=== PATIENT | female | born 1995 | race African-American/Black ===

== ENCOUNTER 2017-02-04 18:56 | Emergency (ER) | payer MEDICAID, OTHER ==
[~2017-02-04] VITALS: Ht 157.5 cm; Wt 93.0 kg
[~2017-02-04 18:56] MED LIST: UNK ANTIBIOTIC
[2017-02-04 20:42] VITALS: BP 130/89
== END 2017-02-04 22:57 | disposition home or self-care (01) ==
LOC: ER 18:56
DX: L98.9 Disorder of the skin and subcutaneous tissue, unspecified (principal); Z98.890 Other specified postprocedural states
CPT/HCPCS: 99283

== ENCOUNTER 2018-01-28 10:52 | Emergency (ER) | payer OTHER ==
[~2018-01-28] VITALS: Ht 157.5 cm; Wt 110.0 kg
[2018-01-28 13:09] LABS: BASOPHILS % 0.7 % (0.0-2.0); EOSINOPHILS % 1.9 % (0.0-5.0); HEMATOCRIT. 39.2 % (36.0-48.0); HEMOGLOBIN. 13.3 g/dL (12.0-16.0); LYMPHOCYTES % 24.4 % (20.0-50.0); MEAN CORPUSCULAR HEMOGLOBIN 27.5 pg (28.0-32.0); MEAN CORPUSCULAR VOLUME 81.1 fL (81.0-99.0); MEAN PLATELET VOLUME 8.1 fl (7.4-10.4); PLATELET 260 x1000/uL (130-400); RED BLOOD CELL COUNT 4.84 mill/uL (4.2-5.4); RED CELL DISTRIBUTION WIDTH 13.2 % (11.6-14.6)
[2018-01-28 13:16] LABS: CHLORIDE 108 mEq/L (98-107)
[2018-01-28 13:17] LABS: INR 1.1; PROTHROMBIN TIME 10.9 sec (9.4-11.6)
[2018-01-28 13:44] LABS: HCG SCREEN NEGATIVE
[2018-01-28] MEDS ORDERED: PROCHLORPERAZINE 10MG/2ML VIAL IV ONE (15:30)
[2018-01-28] MEDS ORDERED: SODIUM CHLORIDE 0.9% 1,000 ML IV ONE (15:30)
[2018-01-28] MEDS ORDERED: KETOROLAC 15MG/ML VIAL IV ONE (15:30)
[2018-01-28 17:36] VITALS: BP 121/63
== END 2018-01-28 17:53 | disposition home or self-care (01) ==
LOC: ER 11:15
DX: R55 Syncope and collapse (principal); R51 Headache; R42 Dizziness and giddiness; H53.8 Other visual disturbances; Z98.890 Other specified postprocedural states
CPT/HCPCS: 36415; 71045; 80048; 83735; 84703; 85025; 85610; 93005; 96361; 96374; 96375; 99285; J0780; J1885; J7030; Z7610

== ENCOUNTER 2019-06-11 13:27 | Emergency (ER) | payer OTHER ==
[~2019-06-11] VITALS: Ht 157.5 cm; Wt 115.0 kg
[2019-06-11] MEDS ORDERED: ONDANSETRON HCL 4MG/2ML INJ IV ONE (15:15)
[2019-06-11] MEDS ORDERED: SODIUM CHLORIDE 0.9% 1,000 ML IV ONE (15:15)
[2019-06-11 15:53] LABS: BASOPHILS % 0.5 % (0.0-2.0); EOSINOPHILS % 0.8 % (0.0-5.0); HEMATOCRIT. 38.3 % (36.0-48.0); HEMOGLOBIN. 12.6 g/dL (12.0-16.0); LYMPHOCYTES % 26.7 % (20.0-50.0); MEAN CORPUSCULAR HEMOGLOBIN 25.6 pg (28.0-32.0); MEAN CORPUSCULAR VOLUME 77.7 fL (81.0-99.0); MONOCYTES % 6.4 % (2.0-8.0); NEUTROPHILS % 65.6 % (40.0-76.0); PLATELET 261 x1000/uL (130-400); RED BLOOD CELL COUNT 4.92 mill/uL (4.2-5.4); RED CELL DISTRIBUTION WIDTH 14.8 % (11.6-14.6)
[2019-06-11 15:55] LABS: CLARITY URINE CLOUDY (CLEAR); COLOR URINE YELLOW (YELLOW); KETONES URINE NEGATIVE (NEGATIVE); LEUKOCYTE ESTERASE URINE 2+ (NEGATIVE); NITRITE URINE NEGATIVE (NEGATIVE); OCCULT BLOOD URINE NEGATIVE (NEGATIVE); PH URINE 5.5 (4.5-8.0); PROTEIN URINE NEGATIVE (NEGATIVE); SPECIFIC GRAVITY URINE 1.029 (1.005-1.030); UROBILINOGEN URINE 0.2 E.U./dL (0.2-1.0)
[2019-06-11 15:57] LABS: CHLORIDE 106 mEq/L (98-107)
[2019-06-11 16:21] LABS: B-HCG QUANTITATIVE 19100 mIU/mL (<3)
[2019-06-11] MEDS ORDERED: CEFTRIAXONE 1 G PREMIX 50 ML IV ONE (17:00)
[2019-06-11 17:35] VITALS: BP 125/85
== END 2019-06-11 17:56 | disposition home or self-care (01) ==
LOC: ER 13:35
DX: O26.891 Other specified pregnancy related conditions, first trimester (principal); O21.0 Mild hyperemesis gravidarum; O23.11 Infections of bladder in pregnancy, first trimester; O99.331 Smoking (tobacco) complicating pregnancy, first trimester; D64.9 Anemia, unspecified; Z3A.01 Less than 8 weeks gestation of pregnancy
CPT/HCPCS: 36415; 76801; 76817; 80053; 81003; 81025; 84702; 85025; 87086; 96361; 96374; 96375; 99284; J0696; J2405; J7030; Z7610

== ENCOUNTER 2019-10-06 09:29 | Observation (INO) | payer OTHER ==
[~2019-10-06] VITALS: Ht 154.9 cm; Wt 117.9 kg
[2019-10-06] MEDS ORDERED: ACETAMINOPHEN 500MG TABLET PO NR (10:12)
== END 2019-10-06 10:40 | disposition home or self-care (01) ==
LOC: 8 EST LDRP 09:29
PROVIDERS: ADMIT Obstetrics & Gynecology; ATTEND Obstetrics & Gynecology
DX: O9A.212 Injury, poisoning and certain other consequences of external causes complicating pregnancy, second trimester (principal); O26.893 Other specified pregnancy related conditions, third trimester; R10.30 Lower abdominal pain, unspecified; Z3A.22 22 weeks gestation of pregnancy
CPT/HCPCS: 99281; G0378

== ENCOUNTER 2019-10-17 09:59 | Observation (INO) | payer OTHER ==
[~2019-10-17] VITALS: Ht 157.5 cm; Wt 84.8 kg
[2019-10-17] MEDS ORDERED: PREN-134 PO (10:52)
== END 2019-10-17 13:00 | disposition home or self-care (01) ==
LOC: 8 EST LDRP 09:59
PROVIDERS: ADMIT Specialist; ATTEND Specialist
DX: O9A.212 Injury, poisoning and certain other consequences of external causes complicating pregnancy, second trimester (principal); O36.8120 Decreased fetal movements, second trimester, not applicable or unspecified; Z3A.24 24 weeks gestation of pregnancy; W19.XXXA Unspecified fall, initial encounter; Y93.9 Activity, unspecified; Y92.9 Unspecified place or not applicable; Y99.9 Unspecified external cause status
CPT/HCPCS: 76805; 76815; 99281; G0378

== ENCOUNTER 2019-12-07 21:16 | Observation (INO) | payer OTHER ==
[~2019-12-07] VITALS: Ht 157.5 cm; Wt 91.2 kg
[~2019-12-07 21:16] MED LIST changes: +PREN-134 PO; -UNK ANTIBIOTIC
[2019-12-07] MEDS: SODIUM CHLORIDE 0.9% 1,000 ML IV SCH ×2 (22:30→23:45)
[2019-12-07] MEDS ORDERED: ACETAMINOPHEN 500MG TABLET PO NR (23:32)
[2019-12-08] MEDS: SODIUM CHLORIDE 0.9% 1,000 ML IV SCH (00:04)
== END 2019-12-08 02:00 | disposition home or self-care (01) ==
LOC: ER 22:08 → L&D 22:09 → 8 EST LDRP 23:51
PROVIDERS: ADMIT Obstetrics & Gynecology; ATTEND Obstetrics & Gynecology
DX: O9A.213 Injury, poisoning and certain other consequences of external causes complicating pregnancy, third trimester (principal); O26.893 Other specified pregnancy related conditions, third trimester; R10.30 Lower abdominal pain, unspecified; Z3A.31 31 weeks gestation of pregnancy; V43.62XA Car passenger injured in collision with other type car in traffic accident, initial encounter; Y93.89 Activity, other specified; Y92.89 Other specified places as the place of occurrence of the external cause; Y99.8 Other external cause status
CPT/HCPCS: 76805; 76818; 99281; G0378; 96360; 96361

== ENCOUNTER 2019-12-26 13:50 | Observation (INO) | payer OTHER, MEDICAID ==
[~2019-12-26] VITALS: Ht 165.1 cm; Wt 82.6 kg
== END 2019-12-26 15:20 | disposition home or self-care (01) ==
LOC: 8 EST LDRP 13:50
PROVIDERS: ADMIT Obstetrics & Gynecology; ATTEND Obstetrics & Gynecology
DX: O26.893 Other specified pregnancy related conditions, third trimester (principal); R10.30 Lower abdominal pain, unspecified; Z3A.34 34 weeks gestation of pregnancy
CPT/HCPCS: 99281; G0378

== ENCOUNTER 2019-12-31 10:03 | Observation (INO) | payer OTHER ==
[~2019-12-31] VITALS: Ht 157.5 cm; Wt 117.9 kg
== END 2019-12-31 11:45 | disposition home or self-care (01) ==
LOC: 8 EST LDRP 10:03
PROVIDERS: ADMIT Obstetrics & Gynecology; ATTEND Obstetrics & Gynecology
DX: O42.913 Preterm premature rupture of membranes, unspecified as to length of time between rupture and onset of labor, third trimester (principal); O26.893 Other specified pregnancy related conditions, third trimester; R10.9 Unspecified abdominal pain; Z3A.35 35 weeks gestation of pregnancy
CPT/HCPCS: 99281; G0378

== ENCOUNTER 2020-01-27 12:31 | Observation (INO) | payer OTHER ==
[~2020-01-27] VITALS: Ht 157.5 cm; Wt 127.0 kg
[2020-01-27 13:08] VITALS: BP 151/89
== END 2020-01-27 14:40 | disposition home or self-care (01) ==
LOC: 8 EST LDRP 12:31 → ER 12:31 → EDSTATUS 14:00
PROVIDERS: ADMIT Obstetrics & Gynecology; ATTEND Obstetrics & Gynecology
DX: O26.893 Other specified pregnancy related conditions, third trimester (principal); R07.89 Other chest pain; O99.513 Diseases of the respiratory system complicating pregnancy, third trimester; R06.02 Shortness of breath; Z3A.39 39 weeks gestation of pregnancy
CPT/HCPCS: 93005; 99284; G0378; 99281

== ENCOUNTER 2020-01-31 11:25 | Observation (INO) | payer OTHER ==
[~2020-01-31] VITALS: Ht 157.5 cm; Wt 122.5 kg
== END 2020-01-31 13:40 | disposition home or self-care (01) ==
LOC: 8 EST LDRP 11:25
PROVIDERS: ADMIT Obstetrics & Gynecology; ATTEND Obstetrics & Gynecology
DX: O62.9 Abnormality of forces of labor, unspecified (principal); Z3A.39 39 weeks gestation of pregnancy
CPT/HCPCS: 99281; G0378

== ENCOUNTER 2020-02-01 11:15 | Observation (INO) | payer OTHER ==
[~2020-02-01] VITALS: Ht 157.5 cm; Wt 122.5 kg
== END 2020-02-01 12:45 | disposition home or self-care (01) ==
LOC: 8 EST LDRP 11:15
PROVIDERS: ADMIT Obstetrics & Gynecology; ATTEND Obstetrics & Gynecology
DX: O62.9 Abnormality of forces of labor, unspecified (principal); O26.893 Other specified pregnancy related conditions, third trimester; Z3A.39 39 weeks gestation of pregnancy
CPT/HCPCS: 99281; G0378

== ENCOUNTER 2020-02-06 06:28 | Observation (INO) | payer OTHER ==
[~2020-02-06] VITALS: Ht 157.5 cm; Wt 122.5 kg
== END 2020-02-06 09:45 | disposition home or self-care (01) ==
LOC: 8 EST LDRP 06:28
PROVIDERS: ADMIT Obstetrics & Gynecology; ATTEND Obstetrics & Gynecology
DX: O26.893 Other specified pregnancy related conditions, third trimester (principal); R10.9 Unspecified abdominal pain; O62.9 Abnormality of forces of labor, unspecified; Z3A.40 40 weeks gestation of pregnancy
CPT/HCPCS: 76805; 76818; 99281; G0378